=== PATIENT | male | born 1945 | race Caucasian/White ===

== ENCOUNTER 2016-12-23 23:55 | Emergency (ER) ==
--- NOTE | 2016-12-24 00:49 | PROVIDER DOCUMENTATION ---
HPI-Respiratory General - General Source: patient - History of Present Illness-Resp Quality of Pain: reports: pressure Severity in ED: reports: moderate Onset/Duration: reports: this afternoon Timing: reports: still present Cough Quality/Degree: reports: mild Current Respiratory Medication Therapy: Initiated none Modifying Factors: improves with: sitting upright. worse with: deep breath, lying down Associated Symptoms: reports: chest pain/soreness, shortness of breath. denies : dizziness <Marilynn Pillai - Last Filed: 12/24/16 02:52> <Jaun Ryan - Last Filed: 12/24/16 03:34> - General Chief Complaint: Shortness of Breath Stated Complaint: SOB, COUGH Time Seen by Provider: 12/24/16 00:15 Allergies/Adverse Reactions: Patient Allergies Allergy/AdvReac Type Severity Reaction Status Date / Time No Known Allergies Allergy Verified 12/24/16 00:28 Home Medications: Home Medication List Medication Instructions Recorded Confirmed Last Taken Type Aspirin [[place] Aspirin] 81 mg PO DAILY 10/14/15 12/24/16 12/24/16 History Diltiazem C.d. [Cardizem Cd] 180 mg PO DAILY 10/14/15 12/24/16 12/24/16 History Nitroglycerin [Nitroglycerin 0.4 1 patch TOP QAM 10/14/15 12/24/16 12/24/16 History mg/Hr Patch] Albuterol 2.5MG/Ipratrop 0.5MG 3 ml INH Q4-6H PRN PRN #30 neb 12/24/16 Unknown Rx [Duoneb] Nebulizer Accessories [Nebulizer] 1 each MC 2-4XDAY PRN PRN #1 kit 12/24/16 Unknown Rx - History of Present Illness-Resp Nature of Presenting Problem: 71 Y/O M presents to ED with SOB. Pt states that his SOB of started this afternoon. Pt states that it's been hard to breather, states last occurrence with similar symptoms was bronchitis. Denies coughing,wheezing, swelling of legs. States has to sit up, and stand to breathe. Can't lay flat causes pressure and hard to breathe, States has angina since '. Chronic pack a day smoker. (Marilynn Pillai) Review of Systems - Adult - REVIEW OF SYSTEMS - ADULT Constitutional: denies: chills, fever Eyes: reports: no symptoms reported Ears, Nose, Mouth & Throat: denies: ear pain, nose pain Cardiovascular: reports: chest pain (with deep breathes). denies: heart murmur , poor circulation, syncope Respiratory: reports: cough (mild), shortness of breath Gastrointestinal: denies: abdominal pain Genitourinary: reports: no symptoms reported Musculoskeletal: reports: no symptoms reported Integumentary: reports: no symptoms reported Neurological: reports: no symptoms reported Psychiatric: reports: no symptoms reported Endocrine: reports: no symptoms reported Hematologic/Lymphatic: reports: no symptoms reported Allergic/Immunologic: reports: no symptoms reported All Other Systems: Reviewed and Negative <Marilynn Pillai - Last Filed: 12/24/16 02:52> Past History - Adult - PAST MEDICAL HISTORY-ADULT Review of Records: reports: Old Records Reviewed, Nursing Assessment Review, Medications Reviewed, Social history reviewed & non-contributory. Major Childhood Illnesses: reports: denies history Cardiovascular: reports: other (angina) - PRIOR SURGERIES/PROCEDURES Surgical/Procedure History: reports: cholecystectomy, tonsillectomy - IMMUNIZATION STATUS Childhood Immunizations: See Nurse Assessment Flu Vaccine: See Nurse Assessment - SOCIAL HISTORY Smoking: cigarettes, greater than 1 pack/day Substance Use: none/never Alcohol Use Frequency: never <Marilynn Pillai - Filed: 12/24/16 02:52> Physical Exam-General - PHYSICAL EXAM-ADULT Initial Vital Signs Reviewed: Yes - CONSTITUTIONAL General Appearance: appears well, alert, no apparent distress - EYES Eyes: PERRL/EOMI, pink conjunctivae, fundi clear, no AV nicking - HEAD, EARS, NOSE, MOUTH & THROAT HENMT: normocephalic/atraumatic, moist mucous membranes, normal ENT inspection, TMs normal, pharynx normal - NECK Neck: non-tender, full range of motion, supple, normal inspection - RESPIRATORY Respiratory: chest non-tender, lungs clear, normal breath sounds - CARDIOVASCULAR Cardiovascular: normal peripheral pulses, regular rate, rhythm - GASTROINTESTINAL (ABDOMEN) Abdominal Exam: normal bowel sounds, non tender, soft - LYMPHATIC Lymphatic: no adenopathy - MUSCULOSKELETAL Back Exam: normal inspection, no CVA tenderness, no vertebral tenderness Extremity: normal range of motion, non-tender, normal gait, pedal edema (mild) - SKIN Integumentary: normal color, normal turgor, warm/dry - 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 No PE. 2. Bronchial wall thickening with several areas of mucous plugging in the lower lobe segmental bronchi is new in the interval 3.otherwise no changes) <Marilynn Pillai - Last Filed: 12/24/16 02:52> <Juan Ryan - Last Filed: 12/24/16 03:34> - PLAN OF CARE/RESULTS Progress/Plan/Lab Results: Laboratory Tests 12/24/16 12/24/16 12/24/16 00:50 00:50 00:50 WBC 11.97 H RBC 5.14 Hgb 15.5 Hct 46.7 MCV 90.9 MCH 30.2 MCHC 33.2 RDW Std Deviation 13.8 Plt Count 256 MPV 9.0 Immature Gran % (Auto) 0.3 Neut % (Auto) 77.8 H Lymph % (Auto) 12.1 L Meagher % (Auto) 7.4 Eos % (Auto) 2.3 Baso % (Auto) 0.1 Immature Gran # (Auto) 0.04 Neut # (Auto) 9.32 H Lymph # (Auto) 1.45 Meagher # (Auto) 0.88 H Eos # (Auto) 0.27 Baso # (Auto) 0.01 D-Dimer 4.86 H Sodium 139 Potassium 4.3 Chloride 104 Carbon Dioxide 24 L Anion Gap 11 BUN 25 H Creatinine 0.9 Estimated GFR/1.73 m2 > 60 BUN/Creatinine Ratio 28 Glucose 117 H Calculated Osmolality 283 Calcium 8.9 Total Bilirubin 0.35 AST 14 ALT 13 Alkaline Phosphatase 95 [id number]-Q-Jlxxeleaxsz Pept Total Protein 6.8 Albumin 3.6 Globulin 3.2 Albumin/Globulin Ratio 1.1 12/24/16 00:50 WBC RBC Hgb Hct MCV MCH MCHC RDW Std Deviation Plt Count MPV Immature Gran % (Auto) Neut % (Auto) Lymph % (Auto) Meagher % (Auto) Eos % (Auto) Baso % (Auto) Immature Gran # (Auto) Neut # (Auto) Lymph # (Auto) Meagher # (Auto) Eos # (Auto) Baso # (Auto) D-Dimer Sodium Potassium Chloride Carbon Dioxide Anion Gap BUN Creatinine Estimated GFR/1.73 m2 BUN/Creatinine Ratio Glucose Calculated Osmolality Calcium Total Bilirubin AST ALT Alkaline Phosphatase Aku-U-Clxayuqeliu Pept 43 Total Protein Albumin Globulin Albumin/Globulin Ratio Orders Category Date Time Status ANGIOGRAM/PULMONARY ARTERIES [CT] Stat Exams 12/24/16 01:31 Taken cxr [CHEST-2 VIEWS] [RAD] Stat Exams 12/24/16 00:37 Taken CBC WITH ELECTRONIC DIFF [HEME] Stat Lab 12/24/16 00:50 Completed COMPREHENSIVE METABOLIC PANEL [CHEM] Stat Lab 12/24/16 00:50 Completed D-DIMER [CHEM] Stat Lab 12/24/16 00:50 Completed PRO B-NATRIURETIC PEPTIDE Stat Lab 12/24/16 00:50 Completed Albuterol 2.5MG/Ipratrop 0.5MG [Duoneb (A & A)] Med 12/24/16 02:51 Discontinued 3 ml INH NOW ONE Ketorolac [Toradol] Med 12/24/16 02:20 Discontinued 30 mg IV NOW ONE Aerosol Treatments Routine Oth 12/24/16 02:51 Active Aerosol Treatments Stat Oth 12/24/16 02:51 Active EKG [EKG] Stat Ther 12/24/16 00:04 Ordered Vital Signs - 24 hr 12/23/16 23:59 Temperature 97.6 F Pulse Rate 88 Respiratory 18 Rate Blood Pressure 115/83 O2 Sat by Pulse 98 Oximetry (Marilynn Pillai) Departure <Marilynn Pillai - Last Filed: 12/24/16 02:52> - Departure Time of Disposition Order: 03:30 Certified Medical Emergency: Emergent <Juan Ryan - Last Filed: 12/24/16 03:34> - Departure DIAGNOSIS: Chronic obstruct airways disease Qualifiers: COPD type: chronic bronchitis Chronic bronchitis type: simple Qualified Code(s) : J41.0 - Simple chronic bronchitis Disposition: HOME 01 Condition: Good Prescriptions: Albuterol 2.5MG/Ipratrop 0.5MG [Duoneb] 3 ml INH Q4-6H PRN PRN #30 neb PRN Reason: wheezing, short of breath Nebulizer Accessories [Nebulizer] 1 each MC 2-4XDAY PRN PRN #1 kit PRN Reason: Shortness Of Breath Referrals: Eufemia Dang MD [Primary Care Provider] - Attestation - Scribe Verification/Attestation Scribe:: Marilynn Pillai Acting as Scribe for:: Juan Ryan Scribe documention review:: This chart was documented by a scribe and accurately reflects the service the provider performed and the decisions made by the provider. <Marilynn Pillai - Last Filed: 12/24/16 02:52> Physician Attestation
[2016-12-24 01:00] LABS: MANUAL DIFF NEEDED? NO
[2016-12-24 01:01] LABS: BASO% 0.1 % (0.0-0.8); EOS# 0.27 X1000 (0.0-0.7); EOS% 2.3 % (0.0-10.0); HEMATOCRIT 46.7 % (42.0-52.0); HEMOGLOBIN 15.5 g/dL (14.0-18.0); IMM GRAN# 0.04 X1000 (0.0-0.04); IMM GRAN% 0.3 % (0.0-0.5); LYMPH# 1.45 X1000 (1.2-3.4); LYMPH% 12.1 % (20.5-51.1); MCH 30.2 PG (27-31); MCHC 33.2 g/dL (33-37); MCV 90.9 FL (81-99); MONO# 0.88 X1000 (0.11-0.59); MONO% 7.4 % (1.7-9.3); NEUT% 77.8 % (42.2-75.2); PLT 256 X1000 (130-400); RBC 5.14 XMIL (4.7-6.1)
[2016-12-24 01:20] LABS: AGAP 11; ALBUMIN 3.6 g/dL (3.5-5.0); ALKALINE PHOSPHATASE 95 U/L (32-122); BUN 25 mg/dL (8-22); CALCIUM 8.9 mg/dL (8.8-10.2); CHLORIDE 104 mmol/L (98-107); COSMO 283; GOT 14 U/L (10-34); GPT 13 U/L (10-44); POTASSIUM 4.3 mmol/L (3.5-5.1); SODIUM 139 mmol/L (136-145); TCO2 24 mmol/L (25-35); TOTAL BILIRUBIN 0.35 mg/dL (0.20-1.00); TOTAL PROTEIN 6.8 g/dL (6.3-8.3)
[2016-12-24] MEDS ORDERED: TORADOL IV ONE (02:20)
[2016-12-24] MEDS ORDERED: DUONEB (A & A) INH ONE (02:51)
[2016-12-24 03:44] VITALS: BP 131/73
--- NOTE | 2016-12-24 05:26 | EKG Report ---
Test Performed on : 12/24/2016 00:09:54 AM Test Reason : sob Blood Pressure : / mmHG Vent. Rate : 077 BPM Atrial Rate : 077 BPM P-R Int : 154 ms QRS Dur : 092 ms QT Int : 382 ms P-R-T Axes : 029 -50 053 degrees QTc Int : 432 ms Normal sinus rhythm. Left anterior fascicular block Abnormal ECG When compared with ECG of 01-NOV-2016 21:34, No significant change was found Unconfirmed Result
--- NOTE | 2016-12-24 07:54 | Diag Imaging Result Document ---
PROCEDURE NAME: ANGIOGRAM/PULMONARY ARTERIES - 12/24/2016 CT OF THE CHEST WITH INTRAVENOUS CONTRAST AND CLARITY: FINDINGS: There are numerous calcified granulomata. There are no filling defects in the pulmonary arteries. There is atherosclerotic change in the aorta with calcified and noncalcified plaque. There may be ulcerated plaque in the area of the arch of the aorta. The ascending aorta is slightly ectatic measuring almost 4.7 cm in transverse dimension. There are some calcifications in the left anterior descending coronary artery. There are no abnormal fluid collections. The visualized portion of the abdomen is unremarkable. There is some ground-glass opacity present in a patchy distribution particularly in the subpleural zones in both upper lobes notably in the lingula as well as in the posterior right middle lobe adjacent to the major fissure. This may represent interstitial fibrosis. There is a similar appearance on the previous study of 11/01/2016 but no earlier studies are available for comparison. There is some slight worsening in the bronchial thickening and inspissated mucus in the lower lobe bronchi bilaterally which was present to some extent on 11/01/2016. This is likely related to exacerbation of bronchitis. IMPRESSION: 1. No evidence of pulmonary emboli. 2. Exacerbation of bronchitis with mucus plugging in lower lobe bronchi bilaterally worse than on 11/01/2016. 3. Aneurysmal dilatation of the ascending aorta stable since 11/01/2016. 4. Patchy pulmonary fibrosis. 5. Granulomatous changes.
--- NOTE | 2016-12-24 08:19 | Diag Imaging Result Document ---
PROCEDURE NAME: CHEST-2 VIEWS - 12/24/2016 FRONTAL AND LATERAL CHEST, TWO VIEWS: COMPARISON: 11/01/2016. FINDINGS: The lungs are well expanded. The heart is not enlarged. The vessels are not distended. There are no infiltrates. No pleural effusions. There are multiple scattered calcified granuloma and there are multiple calcified mediastinal and hilar lymph nodes. IMPRESSION: There is evidence of a prior granulomatous infection. No acute abnormality.
== END 2016-12-24 03:44 | disposition home or self-care (01) ==
LOC: ED 23:55
DX: J41.0 Simple chronic bronchitis (principal); R06.02 Shortness of breath; R07.9 Chest pain, unspecified; R05 Cough; F17.210 Nicotine dependence, cigarettes, uncomplicated; R60.9 Edema, unspecified; Z79.899 Other long term (current) drug therapy; Z79.82 Long term (current) use of aspirin
CPT/HCPCS: 71020; 71275; 80053; 83880; 85025; 85379; 93005; 94640; J1885; Q9967